=== PATIENT | male | born 1960 | race Caucasian/White ===

== ENCOUNTER 2017-03-23 08:00 | Emergency (ER) | payer BC ==
[2017-03-23] MEDS ORDERED: ONDANSETRON HCL INJ/PF 4 MG/2 ML SDV IV ONE ×2 (08:41→11:42)
--- NOTE | 2017-03-23 08:50 | ER Document Report ---
ED General - General Chief Complaint: Nausea/Vomiting Stated Complaint: VOMITING Time Seen by Provider: 03/23/17 08:41 Mode of Arrival: Ambulatory Information source: Patient Notes: 56-year-old male presents with complaints of nausea vomiting, patient denies any fevers or chills notes symptoms occurred after eating [employer], notes 6 months ago similar episode occurred after eating [employer] denies any specific abdominal pain TRAVEL OUTSIDE OF THE [place] IN LAST 30 DAYS: No - HPI Onset: Yesterday Onset/Duration: Sudden Quality of pain: Cramping Severity: Mild Pain Level: 1 Associated symptoms: Nausea, Vomiting Exacerbated by: Denies Relieved by: Denies Similar symptoms previously: Yes Recently seen / treated by doctor: Yes Past Medical History - Social History Smoking Status: Never Smoker Cigarette use (# per day): No Chew tobacco use (# tins/day): No Smoking Education Provided: No Family History: Reviewed & Not Pertinent Patient has suicidal ideation: No Patient has homicidal ideation: No Renal/ Medical History: Denies: Hx Peritoneal Dialysis Review of Systems - Review of Systems Notes: REVIEW OF SYSTEMS: CONSTITUTIONAL : Denies fever, chills, or sweats. Denies recent illness. EENT: Denies eye, ear, throat, or mouth pain or symptoms. Denies nasal or sinus congestion or discharge. Denies throat, tongue, or mouth swelling or difficulty swallowing. CARDIOVASCULAR: Denies chest pain. Denies palpitations or racing or irregular heart beat. Denies ankle edema. RESPIRATORY: Denies cough, cold, or chest congestion. Denies shortness of breath, difficulty breathing, or wheezing. GASTROINTESTINAL: Admits to nausea vomiting GENITOURINARY: Denies difficulty urinating, painful urination, burning, frequency, blood in urine, or discharge. MUSCULOSKELETAL: Denies back or neck pain or stiffness. Denies joint pain or swelling. SKIN: Denies rash, lesions or sores. HEMATOLOGIC : Denies easy bruising or bleeding. LYMPHATIC: Denies swollen, enlarged glands. NEUROLOGICAL: Denies confusion or altered mental status. Denies passing out or loss of consciousness. Denies dizziness or lightheadedness. Denies headache. Denies weakness or paralysis or loss of use of either side. Denies problems with gait or speech. Denies sensory loss, numbness, or tingling. Denies seizures. PSYCHIATRIC: Denies anxiety or stress. Denies depression, suicidal ideation, or homicidal ideation. ALL OTHER SYSTEMS REVIEWED AND NEGATIVE. Dictation was performed using [employer] voice recognition software PHYSICAL EXAMINATION: GENERAL: Well-appearing, well-nourished and in no acute distress. HEAD: Atraumatic, normocephalic. EYES: Pupils equal round and reactive to light, extraocular movements intact, sclera anicteric, conjunctiva are normal. ENT: Nares patent, oropharynx clear without exudates. Moist mucous membranes. NECK: Normal range of motion, supple without lymphadenopathy LUNGS: Breath sounds clear to auscultation bilaterally and equal. No wheezes rales or rhonchi. HEART: Regular rate and rhythm without murmurs ABDOMEN: Soft, nontender, nondistended abdomen. No guarding, no rebound. No masses appreciated. Musculoskeletal: Normal range of motion, no pitting or edema. No cyanosis. NEUROLOGICAL: Cranial nerves grossly intact. Normal speech, normal gait. Normal sensory, motor exams PSYCH: Normal mood, normal affect. SKIN: Warm, Dry, normal turgor, no rashes or lesions noted. Physical Exam - Vital signs Vitals: Temp Pulse Resp BP Pulse Ox 97.8 F 70 20 171/98 H 99 03/23/17 08:02 03/23/17 08:02 03/23/17 08:02 03/23/17 08:02 03/23/17 08:02 Course - Re-evaluation Re-evalutation: 03/23/17 10:35 Labwork is consistent with mild white count elevation which makes sense given his nausea and vomiting episodes, otherwise he does not appear dehydrated in no significant distress. Patient will be given for the nausea control has been given IV fluids and states he feels well and will be discharged home After performing a Medical Screening Examination, I estimate there is LOW risk for ACUTE APPENDICITIS, BOWEL OBSTRUCTION, ACUTE CHOLECYSTITIS, PERFORATED DIVERTICULITIS, INCARCERATED HERNIA, PANCREATITIS, or PERFORATED ULCER, thus I consider the discharge disposition reasonable. Also, there is no evidence or peritonitis, sepsis, or toxicity. I have reevaluated this patient multiple times and no significant life threatening changes are noted. The patient and I have discussed the diagnosis and risks, and we agree with discharging home with close follow-up with the understanding that symptoms and presentations can change. We also discussed returning to the Emergency Department immediately if new or worsening symptoms occur. We have discussed the symptoms which are most concerning (e.g., bloody stool, fever, changing or worsening pain, intractable vomiting - standard verbal up date) that necessitate immediate return. - Vital Signs Vital signs: Temp Pulse Resp BP Pulse Ox 97.8 F 70 20 171/98 H 99 03/23/17 08:02 03/23/17 08:02 03/23/17 08:02 03/23/17 08:02 03/23/17 08:02 - Laboratory Result Diagrams: 03/23/17 09:10 03/23/17 09:10 Laboratory results interpreted by me: 03/23/17 03/23/17 03/23/17 09:10 09:10 10:05 WBC 16.3 H Absolute Neutrophils 11.9 H Carbon Dioxide 21 L Glucose 181 H ALT 79 H Urine Urobilinogen 2.0 H Discharge - Discharge Clinical Impression: Nausea & vomiting Qualifiers: Vomiting type: unspecified Vomiting Intractability: non-intractable Qualified Code(s): R11.2 - Nausea with vomiting, unspecified Hypertension Qualifiers: Hypertension type: unspecified secondary hypertension Qualified Code(s): I15.9 - Secondary hypertension, unspecified; I15 - Secondary hypertension Condition: Stable Disposition: HOME, SELF-CARE Instructions: Vomiting ([facility]) Prescriptions: Metoclopramide HCl [Reglan 10 mg Tablet] 1 - 2 tab PO ASDIR PRN #25 tablet PRN Reason: Referrals: LUCIO PETTY FNP-C [Primary Care Provider] - Follow up in 3-5 days
[2017-03-23 09:16] LABS: ABSOLUTE BASOPHILS # (AUTO) 0.1 10^3/uL (0.0-0.2); ABSOLUTE EOSINOPHILS # (AUTO) 0.1 10^3/uL (0.0-0.6); ABSOLUTE LYMPHOCYTES (AUTO) 3.1 10^3/uL (0.5-4.7); ABSOLUTE MONOCYTES (AUTO) 1.1 10^3/uL (0.1-1.4); ABSOLUTE NEUT (AUTO) 11.9 10^3/uL (1.7-8.2); BASOPHILS % (AUTO) 0.3 % (0-2); EOSINOPHILS % (AUTO) 0.6 % (0-6); HEMATOCRIT 46.9 % (37.9-51.0); HEMOGLOBIN 15.3 g/dL (13.5-17.0); MEAN CORPUSCULAR HEMOGLOBIN 28.7 pg (27.0-33.4); MEAN CORPUSCULAR HGB CONC 32.7 g/dL (32.0-36.0); MEAN CORPUSCULAR VOLUME 88 fl (80-97); MONOCYTES % (AUTO) 6.8 % (3-13); RED BLOOD COUNT 5.34 10^6/uL (4.35-5.55); RED CELL DISTRIBUTION WIDTH 12.3 % (11.5-14.0); SEGMENTED NEUTROPHILS % (AUTO) 73.3 % (42-78); WHITE BLOOD COUNT 16.3 10^3/uL (4.0-10.5)
[2017-03-23] MEDS ORDERED: NORMAL SALINE 1000 ML 1,000 ML IV ONE (09:18)
[2017-03-23 09:33] LABS: ALANINE AMINOTRANSFERASE 79 U/L (21-72); ALBUMIN 4.4 g/dL (3.5-5.0); ALKALINE PHOSPHATASE 77 U/L (38-126); ANION GAP 16 (5-19); ASPARTATE AMINO TRANSFERASE 31 U/L (17-59); BILIRUBIN,DIRECT 0.3 mg/dL (0.0-0.4); BILIRUBIN,TOTAL 0.8 mg/dL (0.2-1.3); BLOOD UREA NITROGEN 15 mg/dL (7-20); CARBON DIOXIDE 21 mmol/L (22-30); CHLORIDE 104 mmol/L (98-107); CREATININE RESULT 0.98 mg/dL (0.52-1.25); GLUCOSE 181 mg/dL (75-110); LIPASE 85.9 U/L (23-300); POTASSIUM 3.8 mmol/L (3.6-5.0); SODIUM 141.1 mmol/L (137-145); TOTAL PROTEIN 7.5 g/dL (6.3-8.2)
[2017-03-23 10:21] LABS: APPEARANCE,URINE CLEAR; BILIRUBIN,URINE NEGATIVE (NEGATIVE); GLUCOSE, URINE NEGATIVE (NEGATIVE); KETONES,URINE NEGATIVE (NEGATIVE); LEUKOCYTE ESTERASE,URINE NEGATIVE (NEGATIVE); NITRITE,URINE NEGATIVE (NEGATIVE); PROTEIN,URINE NEGATIVE (NEGATIVE); URINE SPECIFIC GRAVITY 1.015
[2017-03-23] MEDS ORDERED: METOCLOPRAMIDE HCL INJ/PF 10 MG/2 ML SDV IV ONE (10:34)
[2017-03-23] MEDS ORDERED: HALOPERIDOL LACTATE INJ 5 MG/1 ML VIAL IV ONE (11:09)
[2017-03-23] MEDS ORDERED: KETOROLAC TROMETHAMINE INJ/PF 30 MG/1 ML SDV IV ONE (11:10)
[2017-03-23] MEDS ORDERED: DICYCLOMINE HCL INJ 20 MG/2 ML AMPULE IM PRN (11:42)
[2017-03-23] MEDS ORDERED: DIPHENHYDRAMINE HCL 50 MG/ML VIAL IV ONE (12:09)
[2017-03-23 12:52] VITALS: BP 128/68
== END 2017-03-23 12:30 | disposition home or self-care (01) ==
LOC: ER 08:00
DX: R11.2 Nausea with vomiting, unspecified (principal); D72.829 Elevated white blood cell count, unspecified; I10 Essential (primary) hypertension
CPT/HCPCS: 96376; 99284; 96372; 96361; 96374; 96375; 36415; 83690; 85025; 80053; 81001; J0500; J1200; J1630; J1885; J2765; J2405; J7030

== ENCOUNTER 2017-05-29 10:25 | Emergency (ER) | payer BC ==
[2017-05-29] MEDS ORDERED: NORMAL SALINE 1000 ML 1,000 ML IV ONE (10:47)
[2017-05-29] MEDS ORDERED: METOCLOPRAMIDE HCL INJ/PF 10 MG/2 ML SDV IV ONE (10:47)
--- NOTE | 2017-05-29 10:49 | ER Document Report ---
ED General - General Chief Complaint: Nausea/Vomiting Stated Complaint: VOMITTING Time Seen by Provider: 05/29/17 10:44 Mode of Arrival: Ambulatory Information source: Patient Notes: 57-year-old male presents with complaints of nausea vomiting early this morning. Patient notes he has had 5 such episodes, he did have similar episode 2 months ago which was after eating [employer], he denies eating [employer] this time. Patient denies any diarrhea notes he attempted to take the Zofran Phenergan but was unable to keep it down. Patient admits to abdominal cramping denies any fevers or chills TRAVEL OUTSIDE OF THE [place] IN LAST 30 DAYS: No - HPI Onset: This morning Onset/Duration: Sudden Quality of pain: Cramping Severity: Mild Pain Level: 1 Associated symptoms: Nausea, Vomiting Exacerbated by: Denies Relieved by: Denies Similar symptoms previously: Yes Recently seen / treated by doctor: Yes - Related Data Allergies/Adverse Reactions: No Known Allergies Allergy (Verified 05/29/17 11:14) Home Medications: Current Home Medications Dicyclomine HCl [Bentyl 20 mg Tablet] 20 mg PO QID PRN 05/29/17 [History] Past Medical History - Social History Smoking Status: Never Smoker Cigarette use (# per day): No Chew tobacco use (# tins/day): No Smoking Education Provided: No Family History: Reviewed & Not Pertinent Patient has suicidal ideation: No Patient has homicidal ideation: No Renal/ Medical History: Denies: Hx Peritoneal Dialysis GI Medical History: Reports: Hx Gastroesophageal Reflux Disease Past Surgical History: Reports: Hx Orthopedic Surgery - Left shoulder Review of Systems - Review of Systems Notes: REVIEW OF SYSTEMS: CONSTITUTIONAL : Denies fever, chills, or sweats. Denies recent illness. EENT: Denies eye, ear, throat, or mouth pain or symptoms. Denies nasal or sinus congestion or discharge. Denies throat, tongue, or mouth swelling or difficulty swallowing. CARDIOVASCULAR: Denies chest pain. Denies palpitations or racing or irregular heart beat. Denies ankle edema. RESPIRATORY: Denies cough, cold, or chest congestion. Denies shortness of breath, difficulty breathing, or wheezing. GASTROINTESTINAL: Admits to nausea vomiting GENITOURINARY: Denies difficulty urinating, painful urination, burning, frequency, blood in urine, or discharge. MUSCULOSKELETAL: Denies back or neck pain or stiffness. Denies joint pain or swelling. SKIN: Denies rash, lesions or sores. HEMATOLOGIC : Denies easy bruising or bleeding. LYMPHATIC: Denies swollen, enlarged glands. NEUROLOGICAL: Denies confusion or altered mental status. Denies passing out or loss of consciousness. Denies dizziness or lightheadedness. Denies headache. Denies weakness or paralysis or loss of use of either side. Denies problems with gait or speech. Denies sensory loss, numbness, or tingling. Denies seizures. PSYCHIATRIC: Denies anxiety or stress. Denies depression, suicidal ideation, or homicidal ideation. ALL OTHER SYSTEMS REVIEWED AND NEGATIVE. Dictation was performed using [employer] voice recognition software PHYSICAL EXAMINATION: GENERAL: Well-appearing, well-nourished and in no acute distress. HEAD: Atraumatic, normocephalic. EYES: Pupils equal round and reactive to light, extraocular movements intact, sclera anicteric, conjunctiva are normal. ENT: Nares patent, oropharynx clear without exudates. Moist mucous membranes. NECK: Normal range of motion, supple without lymphadenopathy LUNGS: Breath sounds clear to auscultation bilaterally and equal. No wheezes rales or rhonchi. HEART: Regular rate and rhythm without murmurs ABDOMEN: Soft, nontender, nondistended abdomen. No guarding, no rebound. No masses appreciated. Musculoskeletal: Normal range of motion, no pitting or edema. No cyanosis. NEUROLOGICAL: Cranial nerves grossly intact. Normal speech, normal gait. Normal sensory, motor exams PSYCH: Normal mood, normal affect. SKIN: Warm, Dry, normal turgor, no rashes or lesions noted. Physical Exam - Vital signs Vitals: Temp Pulse Resp BP Pulse Ox 97.6 F 72 18 170/86 H 98 05/29/17 10:36 05/29/17 10:36 05/29/17 10:36 05/29/17 10:36 05/29/17 10:36 Course - Re-evaluation Re-evalutation: 05/29/17 10:48 Physical examination is very benign, patient will have lab work performed be given nausea control. Otherwise he looks extremely well is in no distress 05/29/17 12:22 Patient notes improvement of his nausea 05/29/17 12:36 After performing a Medical Screening Examination, I estimate there is LOW risk for ACUTE APPENDICITIS, BOWEL OBSTRUCTION, ACUTE CHOLECYSTITIS, PERFORATED DIVERTICULITIS, INCARCERATED HERNIA, PANCREATITIS, or PERFORATED ULCER, thus I consider the discharge disposition reasonable. Also, there is no evidence or peritonitis, sepsis, or toxicity. I have reevaluated this patient multiple times and no significant life threatening changes are noted. The patient and I have discussed the diagnosis and risks, and we agree with discharging home with close follow-up with the understanding that symptoms and presentations can change. We also discussed returning to the Emergency Department immediately if new or worsening symptoms occur. We have discussed the symptoms which are most concerning (e.g., bloody stool, fever, changing or worsening pain, intractable vomiting - standard verbal up date) that necessitate immediate return. - Vital Signs Vital signs: Temp Pulse Resp BP Pulse Ox 97.6 F 72 18 170/86 H 98 05/29/17 10:36 05/29/17 10:36 05/29/17 10:36 05/29/17 10:36 05/29/17 10:36 - Laboratory Result Diagrams: 05/29/17 11:00 05/29/17 11:00 Laboratory results interpreted by me: 05/29/17 05/29/17 11:00 11:00 WBC 17.2 H Seg Neutrophils % 87.4 H Lymphocytes % 8.6 L Absolute Neutrophils 15.1 H Carbon Dioxide 20 L Glucose 226 H Calcium 10.7 H Direct Bilirubin 0.5 H ALT 92 H Discharge - Discharge Clinical Impression: Nausea & vomiting Qualifiers: Vomiting type: unspecified Vomiting Intractability: non-intractable Qualified Code(s): R11.2 - Nausea with vomiting, unspecified Abdominal pain Qualifiers: Abdominal location: unspecified location Qualified Code(s): R10.9 - Unspecified abdominal pain Condition: Stable Instructions: Abdominal Pain ([facility]), Vomiting ([facility]) Additional Instructions: Follow up with your physician tomorrow for further care or return to the ED IMMEDIATELY if symptoms worsen or new concerns occur. If you cannot afford to follow up with your primary care physician a list of low cost clinics have been provided at the end of your discharge papers as well. Prescriptions: Promethazine HCl [Phenergan 25 mg Supp.rect] 25 mg CA Q4HP PRN #12 supp.rect PRN Reason:
[2017-05-29] MEDS ORDERED: DICYCLOMINE HCL INJ 20 MG/2 ML AMPULE IM ONE (10:50)
[2017-05-29 11:18] LABS: ABSOLUTE BASOPHILS # (AUTO) 0.1 10^3/uL (0.0-0.2); ABSOLUTE LYMPHOCYTES (AUTO) 1.5 10^3/uL (0.5-4.7); ABSOLUTE MONOCYTES (AUTO) 0.6 10^3/uL (0.1-1.4); ABSOLUTE NEUT (AUTO) 15.1 10^3/uL (1.7-8.2); BASOPHILS % (AUTO) 0.6 % (0-2); EOSINOPHILS % (AUTO) 0.1 % (0-6); HEMATOCRIT 46.6 % (37.9-51.0); HGB HCT DIFFERENCE 1.4; LYMPHOCYTES % (AUTO) 8.6 % (13-45); MEAN CORPUSCULAR HEMOGLOBIN 30.5 pg (27.0-33.4); MEAN CORPUSCULAR HGB CONC 34.4 g/dL (32.0-36.0); MEAN CORPUSCULAR VOLUME 89 fl (80-97); MONOCYTES % (AUTO) 3.3 % (3-13); RED BLOOD COUNT 5.25 10^6/uL (4.35-5.55); RED CELL DISTRIBUTION WIDTH 12.5 % (11.5-14.0); SEGMENTED NEUTROPHILS % (AUTO) 87.4 % (42-78); WHITE BLOOD COUNT 17.2 10^3/uL (4.0-10.5)
[2017-05-29 11:32] LABS: ALANINE AMINOTRANSFERASE 92 U/L (21-72); ALKALINE PHOSPHATASE 104 U/L (38-126); ANION GAP 15 (5-19); ASPARTATE AMINO TRANSFERASE 34 U/L (17-59); BILIRUBIN,DIRECT 0.5 mg/dL (0.0-0.4); BILIRUBIN,TOTAL 0.8 mg/dL (0.2-1.3); BLOOD UREA NITROGEN 20 mg/dL (7-20); CALCIUM 10.7 mg/dL (8.4-10.2); CARBON DIOXIDE 20 mmol/L (22-30); CHLORIDE 102 mmol/L (98-107); CREATININE RESULT 0.93 mg/dL (0.52-1.25); GLUCOSE 226 mg/dL (75-110); LIPASE 90.1 U/L (23-300); POTASSIUM 4.3 mmol/L (3.6-5.0); SODIUM 137.3 mmol/L (137-145); TOTAL PROTEIN 7.8 g/dL (6.3-8.2)
[2017-05-29] MEDS ORDERED: ONDANSETRON HCL INJ/PF 4 MG/2 ML SDV IV ONE (12:03)
[2017-05-29 13:08] VITALS: BP 165/82
== END 2017-05-29 12:55 | disposition home or self-care (01) ==
LOC: ER 10:25
DX: R11.2 Nausea with vomiting, unspecified (principal); R10.9 Unspecified abdominal pain
CPT/HCPCS: 99284; 96372; 96374; 96375; 36415; 83690; 85025; 80053; J0500; J2765; J2405; J7030

== ENCOUNTER 2017-06-11 07:28 | Day surgery (SDC) | payer BC ==
[~2017-06-11 07:28] MED LIST: PROPOFOL INJ 200 MG/20 ML VIAL IV ONE
[2017-06-11 09:53] VITALS: BP 137/87
--- NOTE | 2017-06-11 18:27 | Operative Report ---
Operative Report DATE OF SURGERY: 06/11/17 Operative Report: The risks, benefits and alternatives of the procedure including risks of bleeding, perforation requiring surgery are explained to the patient detail and informed consent was obtained. Patient was taken back to the endoscopy suite and placed in the left, lateral decubital position. A rectal examination was done which did not reveal any masses, tears or fissures. An Olympus videoscope was inserted into the patient's rectum. It is carefully advanced all the way to the cecum. The cecum was identified by the usual anatomical landmarks including the ileocecal valve as well as the appendiceal office. Photodocumentation was obtained. The scope was then sequentially pulled back via the rest segments of the colon including the ascending colon, hepatic flexure, transverse colon, splenic flexure, descending colon finding to the rectosigmoid portions of the colon. Retroflexion maneuver was performed. Prep is good. The risks benefits and alternatives of the procedure explained to the patient in detail and informed consent is obtained.A GIF Olympus video scope was inserted into the patient's mouth and hypopharynx, the esophagus is identified intubated and insufflated, the scope was then advanced through the esophagus stomach and duodenum, retroflexion maneuver is done, the esophagus stomach and first and second portions of the duodenum examined PREOPERATIVE DIAGNOSIS: Colorectal cancer screening. Epigastric pain rule out peptic ulcer disease POSTOPERATIVE DIAGNOSIS: Small polyp noted in the transverse colon removed via biopsy forceps. Diverticulosis. On upper endoscopy hiatal hernia seen. Gastritis status post biopsy rule out Helicobacter pylori. Duodenitis OPERATION: Colonoscopy with biopsy. EGD with biopsy SURGEON: OLEKSANDR BRONWE ANESTHESIA: LMAC TISSUE REMOVED OR ALTERED: As noted above. COMPLICATIONS: None. ESTIMATED BLOOD LOSS: None. INTRAOPERATIVE FINDINGS: As noted above. PROCEDURE: Patient tolerated the procedure well. No immediate postprocedure complications are noted. Patient discharged in good condition. Discharge date 06/11/2017. Discharge diet: Regular. Discharge activity: Regular. 2-3 week follow-up to discuss findings. 5 year surveillance colonoscopy. We will wait on pathology. Patient is instructed to call the office or proceed to the emergency room should there be any further problems or questions.
== END 2017-06-11 09:50 | disposition home or self-care (01) ==
LOC: END 07:28
PROVIDERS: ATTEND Internal Medicine Gastroenterology
PROC: 0DB68ZX Excision of Stomach, Via Natural or Artificial Opening Endoscopic, Diagnostic (ICD-10-PCS; principal; 2017-06-11 09:00)
PROC: 0DBL8ZX Excision of Transverse Colon, Via Natural or Artificial Opening Endoscopic, Diagnostic (ICD-10-PCS; 2017-06-11 09:00)
DX: Z12.11 Encounter for screening for malignant neoplasm of colon (principal); K29.60 Other gastritis without bleeding; K63.5 Polyp of colon; K57.30 Diverticulosis of large intestine without perforation or abscess without bleeding; K44.9 Diaphragmatic hernia without obstruction or gangrene; K29.80 Duodenitis without bleeding; E86.0 Dehydration
CPT/HCPCS: 43239; 45380; 88305 ×2; J2704; 740

== ENCOUNTER 2017-07-09 10:30 | Observation (INO) | payer BC ==
--- NOTE | 2017-07-09 11:25 | ER Document Report ---
ED Medical Screen (RME) - General Chief Complaint: Abdominal Pain Stated Complaint: ABDOMINAL PAIN Time Seen by Provider: 07/09/17 10:35 Mode of Arrival: Ambulatory Information source: Patient TRAVEL OUTSIDE OF THE [place] IN LAST 30 DAYS: No - HPI Patient complains to provider of: Abdominal pain with nausea and vomiting Onset: Yesterday Notes: 07/09/17 11:24 57-year-old male presents to the emergency room today complaining of diffuse abdominal pain with nausea and vomiting that has been going on since yesterday evening, he has had a history of the symptoms intermittently since March, has been evaluated by Dr. Campos, signs cleaner with no definitive diagnosis, symptoms started again in the middle the night, he denies any blood in his vomit or stools, no diarrhea, no fevers, no urinary symptoms, was told by Dr. Campos to come to the emergency room for evaluation, Dr. Campos is admissions representative today 07/09/17 11:49 Patient is scheduled to receive an outpatient HIDA scan with [facility] tomorrow, I did discuss with nuclear medicine having that test performed today which patient is eligible for, he did have an outpatient right upper quadrant ultrasound performed at [facility], the tach from HIDA scan is obtaining that report prior to performing the HIDA scan, patient is to remain n.p.o. and have no narcotic pain medication prior to the HIDA scan - Related Data Allergies/Adverse Reactions: No Known Allergies Allergy (Verified 07/09/17 10:33) Past Medical History - Past Medical History Cardiac Medical History: Reports: Hx Hypertension - lisinopril, hctz, Denies: Hx Coronary Artery Disease, Hx Heart Attack Pulmonary Medical History: Denies: Hx Asthma, Hx Bronchitis, Hx COPD, Hx Pneumonia Neurological Medical History: Denies: Hx Cerebrovascular Accident, Hx Seizures Renal/ Medical History: Denies: Hx Peritoneal Dialysis GI Medical History: Reports: Hx Gastroesophageal Reflux Disease Musculoskeltal Medical History: Denies Hx Arthritis Past Surgical History: Reports: Hx Orthopedic Surgery - Left shoulder - Immunizations Hx Diphtheria, Pertussis, Tetanus Vaccination: Yes Physical Exam - Vital signs Vitals: Temp Pulse Resp BP Pulse Ox 97.9 F 127 H 16 157/96 H 98 07/09/17 10:34 07/09/17 10:34 07/09/17 10:34 07/09/17 10:34 07/09/17 10:34 Course - Vital Signs Vital signs: Temp Pulse Resp BP Pulse Ox 97.9 F 127 H 16 157/96 H 98 07/09/17 10:34 07/09/17 10:34 07/09/17 10:34 07/09/17 10:34 07/09/17 10:34
[2017-07-09 12:26] LABS: ABSOLUTE BASOPHILS # (AUTO) 0.2 10^3/uL (0.0-0.2); ABSOLUTE EOSINOPHILS # (AUTO) 0.1 10^3/uL (0.0-0.6); ABSOLUTE LYMPHOCYTES (AUTO) 4.1 10^3/uL (0.5-4.7); ABSOLUTE MONOCYTES (AUTO) 1.5 10^3/uL (0.1-1.4); BASOPHILS % (AUTO) 1.2 % (0-2); EOSINOPHILS % (AUTO) 0.8 % (0-6); HEMOGLOBIN 16.3 g/dL (13.5-17.0); HGB HCT DIFFERENCE 1.9; LYMPHOCYTES % (AUTO) 26.1 % (13-45); MEAN CORPUSCULAR HGB CONC 34.6 g/dL (32.0-36.0); MEAN CORPUSCULAR VOLUME 87 fl (80-97); MONOCYTES % (AUTO) 9.2 % (3-13); RED BLOOD COUNT 5.43 10^6/uL (4.35-5.55); RED CELL DISTRIBUTION WIDTH 12.4 % (11.5-14.0); SEGMENTED NEUTROPHILS % (AUTO) 62.7 % (42-78); WHITE BLOOD COUNT 15.9 10^3/uL (4.0-10.5)
--- NOTE | 2017-07-09 12:32 | ER Document Report ---
ED General - General Chief Complaint: Abdominal Pain Stated Complaint: ABDOMINAL PAIN Time Seen by Provider: 07/09/17 10:35 Mode of Arrival: Ambulatory TRAVEL OUTSIDE OF THE [place] IN LAST 30 DAYS: No - HPI Notes: Patient is a 57-year-old male with a history of hypertension and GERD who presents the ED complaining of generalized abdominal pain with focus to the epigastric area intermittently over the last 4 months, but re-exacerbation that began last night. Patient states that he has been having abdominal pain as well as nausea and vomiting. Patient has not been able to eat because of the nausea, but has been trying to drink fluids. He is not sure if food makes the pain better or worse. He has not noticed any hematemesis, melena, hematochezia. Patient states that his bowels are otherwise regular and soft. The pain does not radiate and is described as a cramping/ache. Patient states that on occasion the pain will become sharp. Patient has been evaluated by Dr. Campos who directed him to come to the ED for evaluation and HIDA scan. Patient had a recent outpatient ultrasound which we are trending the results for. Patient also states that he had an endoscopy and colonoscopy with no formal diagnosis. He denies any drug allergies. Denies any history of coronary artery disease, [place], CVA, cancer, diabetes, or other GI illness. Denies any other recent illness. Denies IV drug use. Denies any headache, fever, neck pain, URI, sore throat, chest pain, palpitations, syncope, cough, shortness of breath, wheeze, dyspnea, diarrhea, urinary retention, dysuria, hematuria, back pain, loss of control of bowel or bladder, numbness/tingling, saddle anesthesia , muscle paralysis/weakness, or rash. - Related Data Allergies/Adverse Reactions: No Known Allergies Allergy (Verified 07/09/17 10:33) Past Medical History - General Information source: Patient - Social History Smoking Status: Never Smoker Chew tobacco use (# tins/day): No Frequency of alcohol use: Occasional Drug Abuse: None Family History: Reviewed & Not Pertinent - Past Medical History Cardiac Medical History: Reports: Hx Hypertension - lisinopril, hctz, Denies: Hx Coronary Artery Disease, Hx Heart Attack Pulmonary Medical History: Denies: Hx Asthma, Hx Bronchitis, Hx COPD, Hx Pneumonia Neurological Medical History: Denies: Hx Cerebrovascular Accident, Hx Seizures Renal/ Medical History: Denies: Hx Peritoneal Dialysis GI Medical History: Reports: Hx Gastroesophageal Reflux Disease Musculoskeltal Medical History: Denies Hx Arthritis Past Surgical History: Reports: Hx Orthopedic Surgery - Left shoulder - Immunizations Hx Diphtheria, Pertussis, Tetanus Vaccination: Yes Review of Systems - Review of Systems Notes: REVIEW OF SYSTEMS: CONSTITUTIONAL : Denies fever, chills, or sweats. Denies recent illness. EENT: Denies eye, ear, throat, or mouth pain or symptoms. Denies nasal or sinus congestion or discharge. Denies throat, tongue, or mouth swelling or difficulty swallowing. CARDIOVASCULAR: Denies chest pain. Denies palpitations or racing or irregular heart beat. Denies ankle edema. RESPIRATORY: Denies cough, cold, or chest congestion. Denies shortness of breath, difficulty breathing, or wheezing. GASTROINTESTINAL: see hpi GENITOURINARY: Denies difficulty urinating, painful urination, burning, frequency, blood in urine, or discharge. MUSCULOSKELETAL: Denies back or neck pain or stiffness. Denies joint pain or swelling. SKIN: Denies rash, lesions or sores. NEUROLOGICAL: Denies confusion or altered mental status. Denies passing out or loss of consciousness. Denies dizziness or lightheadedness. Denies headache. Denies weakness or paralysis or loss of use of either side. Denies problems with gait or speech. Denies sensory loss, numbness, or tingling. ALL OTHER SYSTEMS REVIEWED AND NEGATIVE. Dictation was performed using [employer] voice recognition software Physical Exam - Vital signs Vitals: Temp Pulse Resp BP Pulse Ox 97.9 F 127 H 16 157/96 H 98 07/09/17 10:34 07/09/17 10:34 07/09/17 10:34 07/09/17 10:34 07/09/17 10:34 Notes: PHYSICAL EXAMINATION: GENERAL: Well-appearing, well-nourished and in no acute distress. A&O x4 HEAD: Atraumatic, normocephalic. EYES: Pupils equal round and reactive to light, extraocular movements intact, sclera anicteric, conjunctiva are normal. ENT: Nares patent and without discharge. oropharynx clear without exudates. No tonsilar hypertrophy or erythema. Moist mucous membranes. No sinus tenderness. NECK: Normal range of motion, supple without lymphadenopathy LUNGS: Breath sounds clear to auscultation bilaterally and equal. No wheezes rales or rhonchi. HEART: Regular rate and rhythm without murmurs, rubs, gallops. ABDOMEN: Soft, nondistended abdomen. No guarding, no rebound. No masses appreciated. Normal bowel sounds present. No CVA tenderness bilaterally. + mild tenderness to the epigastrum and RUQ. No obvious pulsatile mass noted. Musculoskeletal: LE's b/l: FROM to passive/active. Strength 5+/5. Extremities: No cyanosis, clubbing, or edema b/l. Peripheral pulses 2+. Capillary refill less than 3 seconds. NEUROLOGICAL: Cranial nerves grossly intact. Normal speech. Normal sensory, motor exams PSYCH: Normal mood, normal affect. SKIN: Warm, Dry, normal turgor, no rashes or lesions noted. Course - Re-evaluation Re-evalutation: 07/09/17 15:[address] Campos, recommends general surgery consult for biliary dyskinesia. Spoke with Dr. Romano who will see the patient. Pt needs admit and surgery. Last meal 1999 last night. Elevated white count, stable vitals. Pt in agreement with plan. 07/09/17 15:44 - Vital Signs Vital signs: Temp Pulse Resp BP Pulse Ox 97.9 F 127 H 16 157/96 H 98 07/09/17 10:34 07/09/17 10:34 07/09/17 10:34 07/09/17 10:34 07/09/17 10:34 - Laboratory Result Diagrams: 07/09/17 11:55 07/09/17 11:55 Laboratory results interpreted by me: 07/09/17 07/09/17 07/09/17 11:40 11:55 11:55 WBC 15.9 H Absolute Neutrophils 10.0 H Absolute Monocytes 1.5 H Glucose 128 H Calcium 10.5 H Direct Bilirubin 0.5 H ALT 74 H Total Protein 8.5 H Albumin 5.1 H Urine Blood SMALL H Discharge - Discharge Clinical Impression: Biliary dyskinesia Condition: Stable Disposition: ADMITTED INPATIENT Admitting Provider: Surgicalist - Dr. Romano Unit Admitted: Surgical Floor
[2017-07-09 12:35] LABS: APPEARANCE,URINE CLEAR; BILIRUBIN,URINE NEGATIVE (NEGATIVE); GLUCOSE, URINE NEGATIVE (NEGATIVE); KETONES,URINE NEGATIVE (NEGATIVE); LEUKOCYTE ESTERASE,URINE NEGATIVE (NEGATIVE); NITRITE,URINE NEGATIVE (NEGATIVE); PROTEIN,URINE NEGATIVE (NEGATIVE); URINE SPECIFIC GRAVITY 1.024; UROBILINOGEN,URINE NEGATIVE mg/dL (<2.0)
[2017-07-09 12:54] LABS: ALANINE AMINOTRANSFERASE 74 U/L (21-72); ALBUMIN 5.1 g/dL (3.5-5.0); ALKALINE PHOSPHATASE 89 U/L (38-126); ANION GAP 13 (5-19); ASPARTATE AMINO TRANSFERASE 31 U/L (17-59); BILIRUBIN,DIRECT 0.5 mg/dL (0.0-0.4); BILIRUBIN,TOTAL 0.8 mg/dL (0.2-1.3); BLOOD UREA NITROGEN 18 mg/dL (7-20); CALCIUM 10.5 mg/dL (8.4-10.2); CARBON DIOXIDE 26 mmol/L (22-30); CHLORIDE 99 mmol/L (98-107); CREATININE RESULT 1.05 mg/dL (0.52-1.25); GLUCOSE 128 mg/dL (75-110); LIPASE 126.5 U/L (23-300); POTASSIUM 3.9 mmol/L (3.6-5.0); SODIUM 138.4 mmol/L (137-145); TOTAL PROTEIN 8.5 g/dL (6.3-8.2)
[2017-07-09] MEDS ORDERED: NORMAL SALINE 1000 ML 1,000 ML IV ONE (14:35)
--- NOTE | 2017-07-09 14:45 | RADIOLOGY REPORT (SQ) ---
EXAM DESCRIPTION: NM HIDA SCAN WITH CCK COMPLETED DATE/TIME: 07/09/2017 2:28 pm REASON FOR STUDY: abdominal pain COMPARISON: None. RADIONUCLIDE AND DOSE: DOSAGE RADIONUCLIDE: 5.23 millicuries Tc99m Mebrofenin. DOSAGE CCK: 1.8 micrograms. DOSAGE MORPHINE: Not required. The route of agent administration: Intravenous TECHNIQUE: Serial imaging right upper quadrant up to 60 minutes following injection of radionuclide. CCK injected after gallbladder visualized. LIMITATIONS: None. FINDINGS: LIVER: Normal visualization without areas of photopenia. INTRA AND EXTRAHEPATIC BILE DUCTS: Normal accumulation of activity. GALLBLADDER: Normal visualization. Calculated Ejection Fraction of 4%. Below the normal value of 35% or greater. PHYSICAL RESPONSE: Patients presenting complaint was reproduced. OTHER: No other significant finding. IMPRESSION: LOW GALLBLADDER EJECTION FRACTION. EVIDENCE FOR BILIARY DYSKINESIS. NO CYSTIC OR COMMO N DUCT OBSTRUCTION. TECHNICAL DOCUMENTATION: JOB ID: [id number] [employer]- All Rights Reserved
--- NOTE | 2017-07-09 17:36 | PDOC H&P ---
History of Present Illness Admission Date/PCP: 07/09/17 15:54 LIBAN HEARD DO Patient complains of: Off and on right upper quadrant pains associated with the vomiting for the past year. Pains are worst last night and has not really let up in severity. He had a ultrasound of the gallbladder about 4 days ago at [facility] which showed sludge in the gallbladder. He had a HIDA scan today which showed ejection fraction of only 4% compatible with biliary dyskinesia. History of Present Illness: DUNG MÉNDEZ is a 57 year old male Patient has been complaining of off and on right upper quadrant pains usually associated with vomiting. Pains with sometimes go to the back and after somewhat a greasy meal. Initially occur every 6 months and then 3 months and then 3 weeks. He had an upper and lower endoscopy done by Dr. Vanegas on a about 3 weeks ago which did not find anything unusual or abnormal. He was sent here by Dr. Mann to the emergency room for further workup. Past Medical History Cardiac Medical History: Reports: Hypertension - lisinopril, hctz, Denies: Coronary Artery Disease, Myocardial Infarction Pulmonary Medical History: Denies: Asthma, Bronchitis, Chronic Obstructive Pulmonary Disease (COPD), Pneumonia Neurological Medical History: Denies: Seizures GI Medical History: Reports: Gastroesophageal Reflux Disease Musculoskeltal Medical History: Denies: Arthritis Hematology: Denies: Anemia Past Surgical History Past Surgical History: Reports: Orthopedic Surgery - Left shoulder Social History Lives with: Spouse/Significant other Smoking Status: Never Smoker Frequency of Alcohol Use: Rare Hx Recreational Drug Use: No Hx Prescription Drug Abuse: No - Advance Directive Resuscitation Status: Full Code Family History Family History: Reviewed & Not Pertinent Parental Family History Reviewed: Yes - DM and Cancer Children Family History Reviewed: Yes Sibling(s) Family History Reviewed.: Yes - brother with colitis Medication/Allergy Home Medications: Etodolac [Lodine] 400 mg PO BIDP PRN 07/09/17 Hydroxyzine HCl [Atarax 50 mg Tablet] 50 mg PO QHS 07/09/17 Lisinopril/Hydrochlorothiazide [Zestoretic 10-12.5 mg Tablet] 1 each PO DAILY Omeprazole 40 mg PO QAM 07/09/17 Promethazine HCl [Phenergan 25 mg Supp.rect] 25 mg SD Q4HP PRN 07/09/17 Allergies/Adverse Reactions: No Known Allergies Allergy (Verified 07/09/17 10:33) Review of Systems Constitutional: PRESENT: other - Fever Eyes: PRESENT: other - No eye problems Ears: PRESENT: other - No hearing problems Cardiovascular: PRESENT: other - Denies chest pain Respiratory: PRESENT: other Gastrointestinal: PRESENT: as per HPI, abdominal pain, nausea, vomiting Genitourinary: PRESENT: other - No dysuria Musculoskeletal: PRESENT: other - No joint pains Integumentary: PRESENT: other - No skin rash Neurological: PRESENT: other - No seizures Psychiatric: PRESENT: other - No anxiety Endocrine: PRESENT: other - No polydipsia nor polyuria Hematologic/Lymphatic: PRESENT: other - No easy bruisability or lymph node enlargement Physical Exam Vital Signs: Temp Pulse Resp BP Pulse Ox 97.9 F 127 H 16 157/96 H 98 07/09/17 10:34 07/09/17 10:34 07/09/17 10:34 07/09/17 10:34 07/09/17 10:34 General appearance: PRESENT: mild distress Head exam: PRESENT: atraumatic, normocephalic Eye exam: PRESENT: PERRLA Ear exam: PRESENT: normal external ear exam Mouth exam: PRESENT: moist, tongue midline Neck exam: PRESENT: other - No no thyromegaly no adenopathy Respiratory exam: PRESENT: clear to auscultation maki Cardiovascular exam: PRESENT: RRR Pulses: PRESENT: normal carotid pulses Vascular exam: PRESENT: normal capillary refill GI/Abdominal exam: PRESENT: soft, tenderness - Primarily along the right upper quadrant Rectal exam: PRESENT: deferred Extremities exam: PRESENT: full ROM Musculoskeletal exam: PRESENT: full ROM Neurological exam: PRESENT: alert, oriented to person, oriented to place, oriented to time, oriented to situation, CN II-XII grossly intact Psychiatric exam: PRESENT: appropriate affect, normal mood Skin exam: PRESENT: dry, normal color, warm Results Laboratory Results: White count is 15.9 Impressions: Hepatobiliary Scan Nuclear Medicine 07/09/17 11:30 IMPRESSION: LOW GALLBLADDER EJECTION FRACTION. EVIDENCE FOR BILIARY DYSKINESIS. NO CYSTIC OR COMMON DUCT OBSTRUCTION. Assessment & Plan - Diagnosis (1) Biliary sludge determined by ultrasound Is this a current diagnosis for this admission?: Yes (2) Biliary dyskinesia Is this a current diagnosis for this admission?: Yes - Time Time Spent: 30 to 50 Minutes Critical Time spent with patient: 35 or more minutes Within: within 48 hours - Inpatient Certification Medical Necessity: Failure to Improve With Outpatient Therapy, Need For IV Fluids, Need for Pain Control, Need for Surgery - Plan Summary Plan Summary: Start IV antibiotics for elevated white count N.p.o. from midnight and start hydration with normal saline Possible laparoscopic cholecystectomy by Dr. Antonio tomorrow
--- NOTE | 2017-07-09 19:33 | PDOC CONSULTATION ---
Consultation Consult Date: 07/09/17 Attending physician:: OLEKSANDR BROWNE Consult reason:: nausea and vomiting History of Present Illness Admission Date/PCP: 07/09/17 15:54 LIBAN HEARD DO History of Present Illness: patient is known to my service was seen about2 weeks ago , and had been having nausea and vomiting his symptoms were very vague He had an EGD done that did not show any ulcers biopsies were negative, and I had started him on a PPI his symptoms did not resolve he did have complaints of constipation as well because of continuing complaints, an ultrasound was ordered he had some sludge he had a HIDA scan scheduled in the next couple of days however was severely symptomatic last night I has sent him to the ED, had been in conversation with the ED attending was able to have his HIDA scan done, does have biliary dyskinesia and has been admitted on the surgical service Past Medical History Cardiac Medical History: Reports: Hypertension - lisinopril, hctz, Denies: Coronary Artery Disease, Myocardial Infarction Pulmonary Medical History: Denies: Asthma, Bronchitis, Chronic Obstructive Pulmonary Disease (COPD), Pneumonia Neurological Medical History: Denies: Seizures GI Medical History: Reports: Gastroesophageal Reflux Disease Musculoskeltal Medical History: Denies: Arthritis Hematology: Denies: Anemia Past Surgical History Past Surgical History: Reports: Orthopedic Surgery - Left shoulder Social History Lives with: Spouse/Significant other Smoking Status: Never Smoker Frequency of Alcohol Use: Rare Hx Recreational Drug Use: No Hx Prescription Drug Abuse: No - Advance Directive Resuscitation Status: Full Code Family History Family History: Reviewed & Not Pertinent Parental Family History Reviewed: Yes Children Family History Reviewed: Unknown Sibling(s) Family History Reviewed.: Unknown Medication/Allergy Home Medications: Etodolac [Lodine] 400 mg PO BIDP PRN 07/09/17 Hydroxyzine HCl [Atarax 50 mg Tablet] 50 mg PO QHS 07/09/17 Lisinopril/Hydrochlorothiazide [Zestoretic 10-12.5 mg Tablet] 1 each PO DAILY Omeprazole 40 mg PO QAM 07/09/17 Promethazine HCl [Phenergan 25 mg Supp.rect] 25 mg NM Q4HP PRN 07/09/17 Allergies/Adverse Reactions: No Known Allergies Allergy (Verified 07/09/17 10:33) Review of Systems Constitutional: ABSENT: fever(s), headache(s), night sweats, weakness Eyes: ABSENT: visual disturbances Ears: ABSENT: hearing changes Nose, Mouth, and Throat: ABSENT: mouth pain, sore throat Cardiovascular: ABSENT: edema, orthropnea, palpitations Respiratory: ABSENT: dyspnea, hemoptysis Gastrointestinal: PRESENT: nausea, vomiting. ABSENT: diarrhea, hematochezia, melena Genitourinary: ABSENT: dysuria, hematuria Musculoskeletal: ABSENT: deformity, joint swelling Integumentary: ABSENT: pruritus Neurological: ABSENT: syncope, tingling, tremor(s), vertigo, weakness Endocrine: ABSENT: polydipsia, polyphagia, polyuria Hematologic/Lymphatic: ABSENT: easy bruising Physical Exam Vital Signs: Temp Pulse Resp BP Pulse Ox 97.9 F 127 H 16 157/96 H 98 07/09/17 10:34 07/09/17 10:34 07/09/17 10:34 07/09/17 10:34 07/09/17 10:34 General appearance: PRESENT: no acute distress, well-developed, well-nourished Head exam: PRESENT: atraumatic, normocephalic Eye exam: PRESENT: EOMI, PERRLA. ABSENT: nystagmus, periorbital swelling, scleral icterus Mouth exam: PRESENT: moist, neck supple Throat exam: ABSENT: tonsillar exudate, tonsillogmegaly Neck exam: ABSENT: meningismus, tenderness, thyromegaly Respiratory exam: PRESENT: symmetrical, unlabored. ABSENT: tachypnea, wheezes Cardiovascular exam: PRESENT: RRR, +S1, +S2 GI/Abdominal exam: PRESENT: soft. ABSENT: rebound, rigid, tenderness Gentrourinary exam: ABSENT: lesions Extremities exam: ABSENT: joint swelling, pedal edema Musculoskeletal exam: PRESENT: full ROM Neurological exam: PRESENT: oriented to time, oriented to situation, reflexes normal, CN II-XII grossly intact Psychiatric exam: PRESENT: appropriate affect Skin exam: PRESENT: normal color. ABSENT: mottled, pallor, urticaria, vesicles Results Impressions: Hepatobiliary Scan Nuclear Medicine 07/09/17 11:30 IMPRESSION: LOW GALLBLADDER EJECTION FRACTION. EVIDENCE FOR BILIARY DYSKINESIS. NO CYSTIC OR COMMON DUCT OBSTRUCTION. Assessment & Plan - Diagnosis (1) Biliary dyskinesia Is this a current diagnosis for this admission?: Yes Plan: admitted by the surgical service and likely will need lap cholecystectomy continue PPI for his GERD will follow as needed case discussed with patient and family will be available if any issues arise - Time Time Spent: 50 to 70 Minutes
[2017-07-09] MEDS ORDERED: ONDANSETRON HCL INJ/PF 4 MG/2 ML SDV IV PRN (22:06)
[2017-07-09] MEDS: NORMAL SALINE 1000 ML 1,000 ML IV PRN (22:18)
[2017-07-09] MEDS ORDERED: GLUCAGON,HUMAN RECOMB 1 MG INJ SUBCUT PRN (23:26)
[2017-07-09] MEDS ORDERED: DEXTROSE 40% GEL 15 GM TUBE PO PRN ×2 (23:26)
[2017-07-09] MEDS ORDERED: DEXTROSE 50%-WATER 25 GM/50 ML DISP.SYRIN IV PRN ×2 (23:26)
[2017-07-10] MEDS: CEFAZOLIN 2 GM/D5W RTU 2 GM/50 ML RTUPB IV SCH ×2 (01:02→12:41)
[2017-07-10] MEDS: NORMAL SALINE 1000 ML 1,000 ML IV PRN (06:52)
[2017-07-10] MEDS ORDERED: BUPIVACAINE HCL 0.25 % INJ/PF (2.5 MG/1 ML) 30 ML VIAL ONE (08:40)
[2017-07-10] MEDS ORDERED: MIDAZOLAM 2 MG/2 ML INJ ONE (08:46)
[2017-07-10] MEDS ORDERED: ACETAMINOPHEN 100 ML IV ONE (08:46)
[2017-07-10] MEDS ORDERED: PROPOFOL INJ 200 MG/20 ML VIAL IV ONE (08:46)
[2017-07-10] MEDS ORDERED: FENTANYL CITRATE INJ/PF 250 MCG/5 ML AMPULE ONE (08:46)
[2017-07-10] MEDS ORDERED: HYDROMORPHONE HCL INJ/PF 2 MG/ML AMPULE ONE (08:47)
--- NOTE | 2017-07-10 09:11 | EKG REPORT ---
SEVERITY:- OTHERWISE NORMAL ECG - SINUS RHYTHM BORDERLINE LEFT AXIS DEVIATION : Confirmed by: Opal Ponce MD 10-Jul-2017 09:10:54
[2017-07-10] MEDS ORDERED: MORPHINE SULFATE 10 MG/ML INJ IV PRN (09:31)
[2017-07-10] MEDS ORDERED: DIPHENHYDRAMINE HCL 50 MG/ML VIAL IV PRN (09:31)
[2017-07-10] MEDS ORDERED: FENTANYL CITRATE INJ/PF 100 MCG/2 ML AMPUL IV PRN ×3 (09:31)
[2017-07-10] MEDS ORDERED: MEPERIDINE HCL/PF INJ 25 MG/1 ML DISP.SYRIN IV PRN (09:31)
[2017-07-10] MEDS ORDERED: PROMETHAZINE HCL INJ 25 MG/1 ML VIAL IV PRN (09:31)
--- NOTE | 2017-07-10 10:28 | PDOC PROGRESS REPORT ---
Subjective Progress Note for:: 07/10/17 Subjective:: Feels better. Minimal abdominal discomfort. Physical Exam Vital Signs: Temp Pulse Resp BP Pulse Ox 98.0 F 92 15 133/80 H 98 07/10/17 08:15 07/10/17 08:15 07/10/17 08:15 07/10/17 08:15 07/10/17 08:15 Intake & Output 07/09/17 07/10/17 07/11/17 06:59 06:59 06:59 Intake Total 300 0 Output Total 1 0 Balance 299 0 Weight 189 kg 86.6 kg General appearance: PRESENT: no acute distress, cooperative Respiratory exam: PRESENT: clear to auscultation maki Cardiovascular exam: PRESENT: RRR GI/Abdominal exam: PRESENT: other - Soft, nondistended, nontender to palpation. Extremities exam: PRESENT: other - No edema. Results Impressions: Hepatobiliary Scan Nuclear Medicine 07/09/17 11:30 IMPRESSION: LOW GALLBLADDER EJECTION FRACTION. EVIDENCE FOR BILIARY DYSKINESIS. NO CYSTIC OR COMMON DUCT OBSTRUCTION. Assessment & Plan - Diagnosis (1) Chronic cholecystitis Is this a current diagnosis for this admission?: Yes Plan: Biliary colic versus chronic cholecystitis. Possible subacute cholecystitis. Will plan laparoscopic cholecystectomy. I have discussed with the patient risks and benefits of the procedure. I have discussed risk of infection, bleeding, intestinal and bile duct injury, mistaken diagnosis, postcholecystectomy diarrhea, and possibility of conversion to an open procedure. Patient understands and agrees to proceed.
[2017-07-10] MEDS ORDERED: ONDANSETRON HCL INJ/PF 4 MG/2 ML SDV IV PRN ×2 (10:32→11:30)
--- NOTE | 2017-07-10 10:32 | Operative Report ---
Operative Report DATE OF SURGERY: 07/10/17 PREOPERATIVE DIAGNOSIS: Chronic cholecystitis POSTOPERATIVE DIAGNOSIS: Subacute cholecystitis, fatty liver disease. OPERATION: Laparoscopic cholecystectomy and core needle biopsy of the liver. SURGEON: ALEXANDRA ROMO ANESTHESIA: GA TISSUE REMOVED OR ALTERED: gallbladder and core needle biopsy of the liver. COMPLICATIONS: None ESTIMATED BLOOD LOSS: 20 cc INTRAOPERATIVE FINDINGS: Distended gallbladder with edematous wall. Enlarged fatty appearing liver. But no gross evidence of cirrhosis. PROCEDURE: Informed consent was obtained. Patient was brought to the operating room placed operating table in supine position. After satisfactory induction of general anesthesia, patient's abdomen was prepped and draped in usual sterile fashion. A infraumbilical midline incision was made and dissection carried down to the fascia the peritoneal cavity entered without difficulty. Cedeno trocar was inserted. Pneumoperitoneum produced good patient toleration. 5 mm trocar was placed in the subxiphoid location.Two 5 mm trochars were placed in the right subcostal location. The liver appeared enlarged and fatty but not grossly cirrhotic. The gallbladder appeared tensely distended and its wall was edematous. The gallbladder was grasped and retracted anteriorly since the liver was too enlarged to allow retraction over the dome of it. The infundibulum of the gallbladder was grasped retracted laterally and inferiorly thus exposing calot's triangle. The cystic duct gallbladder junction was clearly identified and the cystic duct was clipped and divided. Cystic artery was likewise taken. The gallbladder was taken off the gallbladder bed using the hook electrocautery technique. The gallbladder was removed with an Endobag through the Cedeno trocar site fascial defect. Using a Efraín-Cut like biopsy device core needle biopsy was taken of the liver. Hemostasis was achieved with electrocautery. Hemostasis appeared excellent. All trochars were removed under the direct vision a laparoscope to ensure hemostasis. The Cedeno trocar site fascial defect was closed with interrupted Vicryl sutures. All skin incisions were closed with subcuticular interrupted Monocryl sutures. Marcaine was injected at the port sites. Patient tolerated procedure well no apparent complications and was taken to the recovery area in stable condition.
[2017-07-10] MEDS ORDERED: ETODOLAC 400 MG PO PRN (10:34)
[2017-07-10] MEDS ORDERED: PROMETHAZINE HCL INJ 25 MG/1 ML VIAL ONE (10:57)
[2017-07-10] MEDS: FENTANYL CITRATE INJ/PF 100 MCG/2 ML AMPUL ONE ×2 (10:58→11:04)
[2017-07-10] MEDS ORDERED: SUCCINYLCHOLINE CHLORIDE INJ 200 MG/10 ML VIAL ONE (11:26)
[2017-07-10] MEDS ORDERED: GLYCOPYRROLATE INJ 0.4 MG/2 ML VIAL ONE (11:26)
[2017-07-10] MEDS ORDERED: NEOSTIGMINE METHYLSULFATE 10 MG/10 ML VIAL ONE (11:26)
[2017-07-10] MEDS ORDERED: DEXAMETHASONE SOD PHOSPHATE INJ 4 MG/1 ML VIAL ONE (11:26)
[2017-07-10] MEDS ORDERED: VECURONIUM BROMIDE INJ 10 MG VIAL IV ONE (11:26)
[2017-07-10] MEDS ORDERED: LIDOCAINE 2% INJ-PF (20 MG/ML) 10 ML AMPUL ONE (11:26)
[2017-07-10] MEDS: OXYCODONE-ACETAMINOPHEN 5-325 MG TABLET PO PRN ×2 (12:37→17:33)
[2017-07-10] MEDS ORDERED: MORPHINE SULFATE 10 MG/ML INJ IV ONE (15:00)
--- NOTE | 2017-07-10 15:33 | PDOC PROGRESS REPORT ---
Subjective Progress Note for:: 07/10/17 Subjective:: Had right upper quadrant abdominal pain right after surgery but the pain is since resolved. Patient feels well. Tolerating a diet. Wants to go home. Preoperative pain has resolved. Physical Exam Vital Signs: Temp Pulse Resp BP Pulse Ox 97.3 F 73 14 148/73 H 97 07/10/17 14:32 07/10/17 14:32 07/10/17 14:32 07/10/17 14:32 07/10/17 14:32 Intake & Output 07/09/17 07/10/17 07/11/17 06:59 06:59 06:59 Intake Total 300 2240 Output Total 1 265 Balance 299 1975 Weight 189 kg 86.6 kg General appearance: PRESENT: no acute distress, cooperative Respiratory exam: PRESENT: clear to auscultation maki Cardiovascular exam: PRESENT: RRR GI/Abdominal exam: PRESENT: other - Mild distention but abdomen is very soft with a minimal right upper quadrant abdominal pain without peritoneal signs. Neurological exam: PRESENT: alert, awake Results Impressions: Hepatobiliary Scan Nuclear Medicine 07/09/17 11:30 IMPRESSION: LOW GALLBLADDER EJECTION FRACTION. EVIDENCE FOR BILIARY DYSKINESIS. NO CYSTIC OR COMMON DUCT OBSTRUCTION. Assessment & Plan - Diagnosis (1) Chronic cholecystitis Is this a current diagnosis for this admission?: Yes Plan: Status post laparoscopic cholecystectomy. Patient also underwent core needle biopsy of the liver for fatty liver disease. Patient looks good. May discharge patient home. Follow-up with me in 2 weeks. Stay active but avoid strenuous activity.
--- NOTE | 2017-07-10 15:52 | DISCHARGE SUMMARY E ---
Discharge Summary NAME: DUNG MÉNDEZ : 1960 AGE: 57Y ADMITTED: 07/09/2017 DISCHARGED: 07/10/2017 DISCHARGE DIAGNOSES: 1. Fatty liver disease. 2. Subacute cholecystitis. PROCEDURE PERFORMED DURING HOSPITALIZATION: 1. Laparoscopic cholecystectomy. 2. A core needle biopsy of the liver performed by Dr. Bekah Antonio on 07/10/2017. HOSPITAL COURSE: The patient underwent the above-mentioned surgery. He did well postoperatively. He had some postoperative right upper quadrant abdominal pain, but that had resolved by the time of discharge. The patient was tolerating a diet. He had resolution of his preoperative pain. The patient wanted to go home. He is being discharged in good condition. He will follow up with [facility] in 2 weeks. He is encouraged to stay active at home, but avoid strenuous activity. He is to stay on a liquid diet today and he may follow a low-fat diet tomorrow. DISCHARGE MEDICATION: 1. Percocet 5/325 mg 1 p.o. q. 4 hours p.r.n. pain. 2. He may resume his Atarax tomorrow. DICTATING PHYSICIAN: BEKAH ANTONIO M.D. [id number] PHY#: [id number] ID: [id number] JOB#: [id number] ACCT: [id number] cc:Gómez MICHAEL M.D. >
[2017-07-10 17:15] VITALS: BP 146/75
[2017-07-11] MEDS ORDERED: LANSOPRAZOLE 30 MG TAB.RAP.DR PO SCH (08:00)
[2017-07-11] MEDS ORDERED: LISINOPRIL PO SCH (10:00)
[2017-07-11] MEDS ORDERED: HYDROCHLOROTHIAZIDE PO SCH (10:00)
[2017-07-11] MEDS ORDERED: [UNRECOGNIZED DRUG - OTHER] PO SCH (10:00)
[2017-07-11] MEDS ORDERED: HYDROCHLOROTHIAZIDE 12.5 MG CAPSULE PO SCH (10:00)
[2017-07-11] MEDS ORDERED: LISINOPRIL 10 MG TABLET PO SCH (10:00)
== END 2017-07-10 17:51 | disposition home or self-care (01) ==
LOC: ER 10:30 → EH 15:54 → UNDOADMOB 15:54 → INTOOBSV 15:54 → EH 18:36 → 4S 18:36 → EH 23:27 → 4S 23:27
PROVIDERS: ATTEND Surgery
PROC: 0FB04ZX Excision of Liver, Percutaneous Endoscopic Approach, Diagnostic (ICD-10-PCS; 2017-07-10)
PROC: 0FT44ZZ Resection of Gallbladder, Percutaneous Endoscopic Approach (ICD-10-PCS; principal; 2017-07-10 09:15)
DX: K76.0 Fatty (change of) liver, not elsewhere classified (principal); K81.1 Chronic cholecystitis; G89.18 Other acute postprocedural pain; R10.11 Right upper quadrant pain; K59.00 Constipation, unspecified; I10 Essential (primary) hypertension; K21.9 Gastro-esophageal reflux disease without esophagitis; Z79.899 Other long term (current) drug therapy; Z79.1 Long term (current) use of non-steroidal anti-inflammatories (NSAID); Z83.79 Family history of other diseases of the digestive system
CPT/HCPCS: 93005; 99285; 36415; 87086; 83690; 85025; 80053; 81001; 88304 ×2; 88307 ×2; 88313 ×2; 78227; 93010; 47562; 47379; A9537; J2250; J1100; J3010 ×2; J3490 ×2; J2270; J1170; J2550; J0330; J2405; J7030 ×2; J2704; J0690; J0131; Q9969; 790; J2805

== ENCOUNTER → 2017-07-21 | Outpatient (CLI) | payer BC ==
--- NOTE | 2017-07-21 18:14 | RADIOLOGY REPORT (SQ) ---
EXAM DESCRIPTION: U/S ABDOMEN LIMITED W/O DOP COMPLETED DATE/TIME: 07/21/2017 5:53 pm REASON FOR STUDY: Nausea with vomiting, unspecified,Unspecified complication of procedure, in R11.2 NAUSEA WITH VOMITING, UNSPECIFIED T81.9XXA UNSPECIFIED COMPLICATION OF PROCEDURE, INITIAL ENCO COMPARISON: None. TECHNIQUE: Dynamic and static grayscale images acquired of the abdomen and recorded on PACS. Additio nal selected color Doppler and spectral images recorded. LIMITATIONS: Study is limited due to the patient's body habitus and overlying bowel gas. FINDINGS: PANCREAS: The pancreas could not be visualized. LIVER: No masses. Echotexture normal. LIVER VASCULATURE: Normal blood flow was identified in the portal vein. GALLBLADDER: Status post cholecystectomy. ULTRASOUND-DETECTED SALGADO'S SIGN: Negative. INTRAHEPATIC DUCTS AND COMMON DUCT: CBD and intrahepatic ducts normal caliber. No filling defects. INFERIOR VENA CAVA: Normal flow. AORTA: No aneurysm. RIGHT KIDNEY: 11.1 cm in length. Normal echogenicity. No solid or suspicious masses. 3.3 cm in diameter renal cyst is identified. No hydronephrosis. No calcifications. PERITONEAL AND RIGHT PLEURAL SPACE: No ascites or effusions. OTHER: No other significant findings. IMPRESSION: Limited study as noted above. Status post cholecystectomy. Other findings as noted abo ve TECHNICAL DOCUMENTATION: JOB ID: [id number] [employer]- All Rights Reserved
== END ==
LOC: RAD 16:59
PROVIDERS: ATTEND Surgery
DX: R11.2 Nausea with vomiting, unspecified (principal); T81.9XXA Unspecified complication of procedure, initial encounter
CPT/HCPCS: 76705

== ENCOUNTER → 2017-07-21 | Outpatient (CLI) | payer BC ==
[2017-07-21 17:18] LABS: ABSOLUTE BASOPHILS # (AUTO) 0.1 10^3/uL (0.0-0.2); ABSOLUTE EOSINOPHILS # (AUTO) 0.3 10^3/uL (0.0-0.6); ABSOLUTE MONOCYTES (AUTO) 1.3 10^3/uL (0.1-1.4); ABSOLUTE NEUT (AUTO) 9.9 10^3/uL (1.7-8.2); BASOPHILS % (AUTO) 0.5 % (0-2); EOSINOPHILS % (AUTO) 1.7 % (0-6); HEMATOCRIT 43.2 % (37.9-51.0); HGB HCT DIFFERENCE 1.8; LYMPHOCYTES % (AUTO) 25.9 % (13-45); MEAN CORPUSCULAR HEMOGLOBIN 30.6 pg (27.0-33.4); MEAN CORPUSCULAR HGB CONC 34.8 g/dL (32.0-36.0); MEAN CORPUSCULAR VOLUME 88 fl (80-97); MONOCYTES % (AUTO) 8.5 % (3-13); RED CELL DISTRIBUTION WIDTH 12.1 % (11.5-14.0); SEGMENTED NEUTROPHILS % (AUTO) 63.4 % (42-78); WHITE BLOOD COUNT 15.6 10^3/uL (4.0-10.5)
[2017-07-21 17:46] LABS: BLOOD UREA NITROGEN 16 mg/dL (7-20); CALCIUM 10.6 mg/dL (8.4-10.2); CARBON DIOXIDE 24 mmol/L (22-30); CHLORIDE 99 mmol/L (98-107); GLUCOSE 120 mg/dL (75-110); POTASSIUM 4.4 mmol/L (3.6-5.0); SODIUM 139.8 mmol/L (137-145)
[2017-07-21 17:47] LABS: ALANINE AMINOTRANSFERASE 71 U/L (21-72); ALBUMIN 4.8 g/dL (3.5-5.0); ALKALINE PHOSPHATASE 89 U/L (38-126); ANION GAP 17 (5-19); ASPARTATE AMINO TRANSFERASE 28 U/L (17-59); BILIRUBIN,DIRECT 0.4 mg/dL (0.0-0.4); BILIRUBIN,TOTAL 0.7 mg/dL (0.2-1.3); TOTAL PROTEIN 7.7 g/dL (6.3-8.2)
== END ==
LOC: OD 15:58
PROVIDERS: ATTEND Surgery
DX: R11.2 Nausea with vomiting, unspecified (principal); T81.9XXA Unspecified complication of procedure, initial encounter
CPT/HCPCS: 36415; 80053; 85025